=== PATIENT | female | born 1955 | race Caucasian/White ===

== ENCOUNTER 2017-09-13 14:29 | Emergency (ER) | payer OTHER ==
[~2017-09-13] VITALS: Ht 165.1 cm; Wt 62.6 kg
[2017-09-13 15:10] LABS: ABSOLUTE BASOPHIL COUNT 0 /CUMM (0.0-0.2); ABSOLUTE EOSINOPHIL COUNT 0.1 /CUMM (0.0-0.7); ABSOLUTE GRANULOCYTE CT 7.7 /CUMM (1.4-6.5); ABSOLUTE LYMPH COUNT 1.7 /CUMM (1.2-3.4); ABSOLUTE MONOCYTE COUNT 0.5 /CUMM (0.10-0.60); BASOPHIL % 0.3 % (0.0-2.0); EOSINOPHIL % 0.5 % (0-5); GRANULOCYTE % 77.8 % (42.2-75.2); HEMATOCRIT 40.9 % (37-47); MEAN CORPUSCULAR HGB 30.5 PG (27.0-31.0); MEAN CORPUSCULAR HGB CONC 33.1 G/DL (33.0-37.0); MEAN CORPUSCULAR VOLUME 92.1 FL (81.0-99.0); MEAN PLATELET VOLUME 7.9 FL (7.4-10.4); PLATELET COUNT 283 /CUMM (130-400); RBC DISTRIBUTION WIDTH 13.1 % (11.5-14.5); RED BLOOD CELL CT 4.44 /CUMM (4.20-5.40); WHITE BLOOD CELL COUNT 9.9 /CUMM (4.8-10.8)
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
--- NOTE | 2017-09-13 19:24 | CT SCAN REPORT ---
EXAMINATION: CT ABDOMEN AND PELVIS WITHOUT CONTRAST CLINICAL INFORMATION: Diffuse abdominal pain. Nausea. COMPARISON: None TECHNIQUE: Multidetector volumetric imaging was performed from the superior aspect of the liver through the pubic symphysis. Sagittal and coronal reformatted images were obtained on the technologist's workstation. DLP: 294.79 mGy-cm FINDINGS: LUNG BASES: The visualized lung bases are unremarkable. LIVER, GALLBLADDER, AND BILIARY TREE: The liver is normal in size, shape, and attenuation. No focal hepatic lesion or biliary ductal dilatation is present. The gallbladder is unremarkable with no evidence of radiopaque gallstones, gallbladder wall thickening, or obvious pericholecystic inflammatory changes. PANCREAS: Unremarkable. SPLEEN: Unremarkable. ADRENAL GLANDS: Unremarkable. KIDNEYS AND URETERS: Cortical scar versus lobation with small cortical calcification at the posterior mid upper pole of left kidney. There is no renal or ureteral calculus. There is no hydronephrosis. BLADDER: Unremarkable GASTROINTESTINAL TRACT: The small and large bowel are unremarkable. The appendix is unremarkable. MESENTERY: In the mid pelvis there is a soft tissue nodule measuring 2 cm that has subtle edema surrounding the nodule. This has no fat or calcification. This does not appear to be attached to a bowel loop. There is no retraction of the surrounding mesenteric fat. ABDOMINAL WALL: No significant hernia is appreciated. LYMPH NODES: Normal VASCULAR: Scattered vascular wall calcifications of the aorta and iliac vessels without aneurysm. PELVIC VISCERA: Uterus is anteverted. No adnexal abnormality. No fluid in the cul-de-sac. OSSEOUS STRUCTURES: Mild degenerative spondylosis of the lower lumbar spine with vacuum disc phenomenon L5-S1 and facet joint arthrosis at the lower lumbar spine. IMPRESSION: In the mid pelvis mesentery there is a 2 cm nodule with edematous changes surrounding the nodule. This does not contain fat or calcification or air collection. There is no other mass or significant lymphadenopathy. This is not specific for etiology. Question inflamed mesenteric lymph node. This critical result was discussed with Dr. Padilla on 09/17/2017, 7:10 PM and it was ascertained that the content and urgency of the report was understood at the time of direct communication.
[2017-09-13] MEDS ORDERED: ZOFRAN ODT4 M1 SL (19:36)
[2017-09-13 20:15] VITALS: BP 129/79
== END 2017-09-13 20:24 ==
LOC: ERH 14:29
PROVIDERS: Emergency Medicine
DX: R10.84 Generalized abdominal pain (principal)
CPT/HCPCS: 74176; 81003